=== PATIENT | male | born 1985 | race African-American/Black ===

== ENCOUNTER 2023-06-20 13:24 | Emergency (ER) | payer OTHER ==
[~2023-06-20] VITALS: Ht 162.6 cm; Wt 79.0 kg
[2023-06-20 13:34] VITALS: BP 140/97
[2023-06-20 14:00] VITALS: BP 129/90
[2023-06-20] MEDS ORDERED: NAPROXEN500 MG PO (14:17)
[2023-06-20 14:29] VITALS: BP 129/90
== END 2023-06-20 14:35 | disposition home or self-care (01) | DRG 552 ==
LOC: ED 13:24
DX: M54.6 Pain in thoracic spine (principal); R07.89 Other chest pain; V43.52XA Car driver injured in collision with other type car in traffic accident, initial encounter